=== PATIENT | female | born 1955 | race African-American/Black ===

== ENCOUNTER 2018-05-30 08:23 | Emergency (ER) | payer SELFPAY ==
[~2018-05-30] VITALS: Ht 157.5 cm; Wt 74.0 kg
[2018-05-30 08:37] VITALS: BP 144/73
[2018-05-30] MEDS ORDERED: IBUPROFEN 600MG TABLET PO ONE (10:00)
== END 2018-05-30 11:55 | disposition home or self-care (01) ==
LOC: ER 09:38
DX: R25.2 Cramp and spasm (principal); R03.0 Elevated blood-pressure reading, without diagnosis of hypertension
CPT/HCPCS: 99282

== ENCOUNTER 2018-06-17 13:40 | Emergency (ER) | payer SELFPAY ==
[~2018-06-17] VITALS: Ht 160 cm; Wt 91.0 kg
[2018-06-17 16:31] LABS: CLARITY URINE CLEAR (CLEAR); COLOR URINE YELLOW (YELLOW); KETONES URINE NEGATIVE (NEGATIVE); LEUKOCYTE ESTERASE URINE NEGATIVE (NEGATIVE); NITRITE URINE NEGATIVE (NEGATIVE); OCCULT BLOOD URINE NEGATIVE (NEGATIVE); PROTEIN URINE NEGATIVE (NEGATIVE); UROBILINOGEN URINE 0.2 E.U./dL (0.2-1.0)
[2018-06-17 16:48] LABS: BASOPHILS % 0.9 % (0.0-2.0); EOSINOPHILS % 2.7 % (0.0-5.0); HEMATOCRIT. 39.9 % (36.0-48.0); HEMOGLOBIN. 13.1 g/dL (12.0-16.0); LYMPHOCYTES % 40.7 % (20.0-50.0); MEAN CORPUSCULAR HEMOGLOBIN 28.6 pg (28.0-32.0); MEAN CORPUSCULAR VOLUME 87.1 fL (81.0-99.0); MONOCYTES % 6.9 % (2.0-8.0); NEUTROPHILS % 48.8 % (40.0-76.0); PLATELET 174 x1000/uL (130-400); RED BLOOD CELL COUNT 4.58 mill/uL (4.2-5.4); RED CELL DISTRIBUTION WIDTH 14.2 % (11.6-14.6)
[2018-06-17 16:58] LABS: CHLORIDE 105 mEq/L (98-107)
[2018-06-17 17:37] VITALS: BP 177/82
== END 2018-06-17 17:39 | disposition home or self-care (01) ==
LOC: ER 13:40
DX: R39.15 Urgency of urination (principal); R68.2 Dry mouth, unspecified; R03.0 Elevated blood-pressure reading, without diagnosis of hypertension
CPT/HCPCS: 36415; 82962; 83036; 99284

== ENCOUNTER 2018-09-07 11:04 | Emergency (ER) | payer SELFPAY | END 2018-09-07 13:36 | disposition left against medical advice (07) | LOC: ER 11:16 | DX: Z53.21 Procedure and treatment not carried out due to patient leaving prior to being seen by health care provider (principal) ==

== ENCOUNTER 2019-05-17 10:10 | Emergency (ER) | payer BC ==
[~2019-05-17] VITALS: Ht 157.5 cm; Wt 96.3 kg
[2019-05-17] MEDS ORDERED: KETOROLAC 60MG/2ML VIAL IM ONE (11:45)
[2019-05-17 13:03] VITALS: BP 146/74
== END 2019-05-17 14:31 | disposition home or self-care (01) ==
LOC: ER 10:10
DX: S16.1XXA Strain of muscle, fascia and tendon at neck level, initial encounter (principal); M25.512 Pain in left shoulder; M25.551 Pain in right hip; I10 Essential (primary) hypertension; V79.59XA Passenger on bus injured in collision with other motor vehicles in traffic accident, initial encounter; Y93.89 Activity, other specified; Y92.410 Unspecified street and highway as the place of occurrence of the external cause
CPT/HCPCS: 72040; 73030; 73502; 96372; 99283; J1885

== ENCOUNTER 2020-05-24 15:50 | Emergency (ER) | payer MEDICARE, BC ==
[~2020-05-24] VITALS: Ht 165.1 cm; Wt 75.0 kg
[2020-05-24 15:55] VITALS: BP 101/70
== END 2020-05-24 18:19 | disposition home or self-care (01) ==
LOC: ER 15:50
DX: S80.862A Insect bite (nonvenomous), left lower leg, initial encounter (principal); S80.861A Insect bite (nonvenomous), right lower leg, initial encounter; M79.89 Other specified soft tissue disorders; Z59.0 Homelessness; W57.XXXA Bitten or stung by nonvenomous insect and other nonvenomous arthropods, initial encounter; Y93.89 Activity, other specified; Y92.89 Other specified places as the place of occurrence of the external cause; Y99.8 Other external cause status
CPT/HCPCS: 99282

== ENCOUNTER 2020-05-30 07:33 | Emergency (ER) | payer BC, MEDICARE ==
[~2020-05-30] VITALS: Ht 172.7 cm; Wt 156.0 kg
[2020-05-30 08:19] VITALS: BP 147/48
== END 2020-05-30 09:42 | disposition home or self-care (01) ==
LOC: ER 07:54
DX: M25.562 Pain in left knee (principal); I10 Essential (primary) hypertension
CPT/HCPCS: 93005; 99283

== ENCOUNTER 2021-06-30 22:21 | Emergency (ER) | payer MEDICARE ==
[~2021-06-30] VITALS: Ht 160 cm; Wt 88.0 kg
[2021-06-30] MEDS ORDERED: KETOROLAC 60MG/2ML VIAL IM ONE (23:30)
[2021-06-30] MEDS ORDERED: AMOXICILLIN 500 MG CAPSULE PO ONE (23:30)
[2021-07-01] MEDS ORDERED: CETI10CA11 PO (00:15)
[2021-07-01] MEDS ORDERED: IBUP-2029 PO (00:15)
[2021-07-01] MEDS ORDERED: AMOX-494 MT (00:15)
[2021-07-01] MEDS ORDERED: AMOX-424 PO (00:17)
[2021-07-01 00:34] VITALS: BP 141/87
== END 2021-07-01 00:37 | disposition home or self-care (01) ==
LOC: ER 22:21
DX: K05.10 Chronic gingivitis, plaque induced (principal); R09.81 Nasal congestion
CPT/HCPCS: 96372; 99283; J1885

== ENCOUNTER 2022-05-22 01:51 | Emergency (ER) | payer MEDICARE ==
[~2022-05-22] VITALS: Ht 162.6 cm; Wt 98.2 kg
[~2022-05-22 01:51] MED LIST: AMOX-424 PO; CETI10CA11 PO; IBUP-2029 PO
[2022-05-22 02:36] VITALS: BP 176/92
== END 2022-05-22 05:44 | disposition home or self-care (01) ==
LOC: ER 01:51
DX: R21 Rash and other nonspecific skin eruption (principal); I10 Essential (primary) hypertension
CPT/HCPCS: 99281

== ENCOUNTER 2022-11-17 11:15 | Emergency (ER) | payer MEDICARE ==
[~2022-11-17] VITALS: Ht 160 cm; Wt 95.0 kg
[2022-11-17] MEDS ORDERED: PENI500T MT (12:29)
[2022-11-17] MEDS ORDERED: PENICILLIN V POTASSIUM 250MG TABLET PO ONE (12:30)
[2022-11-17] MEDS ORDERED: IBUPROFEN 600MG TABLET PO ONE (12:30)
[2022-11-17 12:51] VITALS: BP 155/98
== END 2022-11-17 13:34 | disposition home or self-care (01) ==
LOC: ER 11:15
DX: K04.7 Periapical abscess without sinus (principal); K02.3 Arrested dental caries; I10 Essential (primary) hypertension
CPT/HCPCS: 99283